=== PATIENT | female | born 1985 | race Caucasian/White ===

== ENCOUNTER 2019-09-29 20:47 | Inpatient (IN) | payer MEDICAID ==
[~2019-09-29] VITALS: Ht 180.3 cm; Wt 91.6 kg
[2019-09-29 21:53] VITALS: BP 118/78
[2019-09-29] MEDS ORDERED: ACETAMINOPHEN 325 MG TABLET PO PRN (22:00)
[2019-09-29] MEDS ORDERED: ONDANSETRON ODT 4 MG PO PRN (22:00)
[2019-09-29] MEDS ORDERED: POLYETHYLENE GLYCOL 17 GM PACKET PO PRN (22:00)
[2019-09-29] MEDS ORDERED: BISACODYL 10 MG SUPP PR PRN (22:00)
[2019-09-29] MEDS ORDERED: DOCUSATE 100 MG CAPSULE PO PRN (22:00)
[2019-09-29] MEDS ORDERED: NICOTINE 14MG/24 HR PATCH.TD24 TD SCH (22:00)
[2019-09-30 00:11] VITALS: BP 118/78
[2019-09-30 05:09] LABS: BASOPHILS # (AUTO) 0.04 x10^3/uL (0-0.1); BASOPHILS % (AUTO) 1 % (0-1); EOSINOPHILS # (AUTO) 0.13 x10^3/uL (0-0.4); EOSINOPHILS % (AUTO) 2 % (1-7); LYMPHOCYTES # (AUTO) 2.51 x10^3/uL (1-3.4); LYMPHOCYTES % (AUTO) 36 % (22-44); MD NO; MEAN CORPUSCULAR HEMOGLOBIN 29.4 pg (27.0-34.8); MEAN CORPUSCULAR HGB CONC 32.5 g/dL (32.4-35.8); MEAN CORPUSCULAR VOLUME 90.5 fL (80-100); MEAN PLATELET VOLUME 8.5 fL (7.4-10.4); MONOCYTES # (AUTO) 0.29 x10^3/uL (0.2-0.8); MONOCYTES % (AUTO) 4 % (2-9); NEUTROPHILS # (AUTO) 3.98 x10^3/uL (1.8-6.8); NEUTROPHILS % (AUTO) 57 % (42-75); PLATELET COUNT 184 x10^3/uL (130-400); RED BLOOD COUNT 4.23 x10^6/uL (3.82-5.3); RED CELL DISTRIBUTION WIDTH 17.3 % (9.6-15.2)
[2019-09-30 05:21] LABS: ANION GAP 5 mmol/L (5-15); CALCIUM 8.9 mg/dL (8.5-10.1); CHLORIDE 112 mmol/L (98-107); CHOLESTEROL, TOTAL 179 mg/dL (140-239); CREATININE 0.96 mg/dL (0.55-1.02)
[2019-09-30 05:47] LABS: CHOL/HDL RATIO 5.1; FREE T4 (FREE THYROXINE) 1.04 ng/dL (0.76-1.46); HDL CHOL % 20 % (28-40); HDL CHOLESTEROL (DIRECT) 35 mg/dL (40-60); LDL CHOLESTEROL,CALCULATED 130 mg/dL (54-169); LDL/HDL RATIO 3.7 (0.5-3.0); TRIGLYCERIDES 72 mg/dL (50-200); VLDL CHOLESTEROL 14 mg/dL (0-25)
[2019-09-30 07:10] VITALS: BP 106/71
[2019-09-30] MEDS: NICOTINE 14MG/24 HR PATCH.TD24 TD SCH (09:25)
[2019-09-30 18:58] LABS: MICROSCOPIC AUTO
[2019-09-30 19:33] LABS: CULTURE INDICATED? YES
[2019-09-30 19:47] VITALS: BP 111/78
[2019-10-01 07:33] VITALS: BP 122/79
[2019-10-01] MEDS: NICOTINE 14MG/24 HR PATCH.TD24 TD SCH (09:17)
[2019-10-01] MEDS ORDERED: CITALOPRAM 20 MG TABLET PO ONE (16:00)
[2019-10-01] MEDS ORDERED: CITALOPRAM 10 MG TABLET PO ONE (16:00)
[2019-10-01] MEDS: CITALOPRAM 10 MG TABLET PO SCH (16:45)
[2019-10-01 19:36] VITALS: BP 113/75
[2019-10-02 07:48] VITALS: BP 100/67
[2019-10-02] MEDS: CITALOPRAM 10 MG TABLET PO SCH (08:33)
[2019-10-02] MEDS: NICOTINE 14MG/24 HR PATCH.TD24 TD SCH (08:33)
[2019-10-02] MEDS ORDERED: CITALOPRAM 20 MG TABLET PO SCH (09:00)
== END 2019-10-02 10:25 | disposition home or self-care (01) | DRG 751 ==
LOC: 3E 21:28
PROVIDERS: ADMIT Psychiatry & Neurology Psychosomatic Medicine; ATTEND Psychiatry & Neurology Psychosomatic Medicine
DX: F33.2 Major depressive disorder, recurrent severe without psychotic features (principal); F12.10 Cannabis abuse, uncomplicated; F17.210 Nicotine dependence, cigarettes, uncomplicated; T39.311A Poisoning by propionic acid derivatives, accidental (unintentional), initial encounter; Z79.899 Other long term (current) drug therapy; Z91.5 Personal history of self-harm; Y92.89 Other specified places as the place of occurrence of the external cause
CPT/HCPCS: 36415; 71045; 80048; 80061; 81001; 82607; 84439; 84443; 85025; 87086; 93005